=== PATIENT | female | born 1960 | race Caucasian/White ===

== ENCOUNTER → 2016-10-17 | Outpatient (CLI) | payer MEDICARE, OTHER ==
[~2016-10-17] MED LIST: BIOT10003 PO; CHOL500050 PO; CLON-241 PO; CYCL-375 PO; DIPH25CA84 PO; DULO30CA52 PO; GABA-338 PO; HYDR-4078 PO; ISOS30TA46 PO; LORA10TA62 PO; METO-275 PO; NITR0.4T39 SL; [UNRECOGNIZED DRUG - OTHER] PO
== END ==
LOC: LAB 11:48
PROVIDERS: ATTEND Family Medicine
DX: R53.83 Other fatigue (principal)
CPT/HCPCS: 36415; 83520; 86618